=== PATIENT | female | born 1940 | race Caucasian/White ===

== ENCOUNTER → 2022-05-23 13:22 | Outpatient (BNVA) | payer MEDICARE, OTHER, SELFPAY | PROVIDERS: PCP Internal Medicine; Visit Provider Nurse Practitioner Family | DX: R51.9 Headache, unspecified (principal); H93.19 Tinnitus, unspecified ear; R06.83 Snoring; G47.19 Other hypersomnia; F41.9 Anxiety disorder, unspecified | CPT/HCPCS: 99202 ==

== ENCOUNTER → 2022-06-12 13:52 | Outpatient (REF) | payer MEDICARE, OTHER, SELFPAY | LOC: HO.SL 13:52 | PROVIDERS: PCP Internal Medicine; Visit Provider Nurse Practitioner Family | DX: G47.33 Obstructive sleep apnea (adult) (pediatric) (principal); G47.19 Other hypersomnia; R06.83 Snoring; R51.9 Headache, unspecified | CPT/HCPCS: 95806 ==

== ENCOUNTER → 2022-08-03 12:51 | Outpatient (BNVA) | payer MEDICARE, OTHER, SELFPAY | PROVIDERS: PCP Internal Medicine; Visit Provider Nurse Practitioner Family | DX: R51.9 Headache, unspecified (principal); H93.19 Tinnitus, unspecified ear; G47.33 Obstructive sleep apnea (adult) (pediatric) | CPT/HCPCS: 99212 ==

== ENCOUNTER → 2022-09-19 15:54 | Outpatient (BNVA) | payer MEDICARE, OTHER, SELFPAY | PROVIDERS: PCP Internal Medicine; Visit Provider Nurse Practitioner Family | DX: R51.9 Headache, unspecified (principal); G47.33 Obstructive sleep apnea (adult) (pediatric) | CPT/HCPCS: 99212 ==

== ENCOUNTER 2023-01-01 14:39 | Outpatient (AMB) | payer MEDICARE, OTHER, SELFPAY ==
[2023-01-01 14:41] VITALS: BP 132/70; PULSE 76; O2SAT 98; BMI 20.7
--- NOTE | 2023-01-01 14:41 | A.OFFVIS_ITS ---
Intake Vital Signs 01/01/23 14:41 Height 5 ft 5 in Weight 124 lb 4 oz BMI 20.7 BP 132/70 Blood Pressure Location Rt brachial Position Sitting Pulse 76 Pulse Source Pulse Oximeter Pulse Oximetry (%) 98 Oxygen Delivery Method Room Air Intake Visit Reasons: 4m follow up headache - Confirmed Intake Note: Pt presents as a 4 month f/u with her daughter and . Pt states things are not bad since the last visit.Pt states with med changes she's able to sleep through the night with the amitriptyline and the cpap. she wakes up not feeling the dizziness and head pressure she was previously feeling. pt states she notices early afternoon the symptoms creep back up. Some weeks she does well, its not every day occurring. Pts states shes been really using the cpap diligently. She was also experiencing swelling in the legs, pt went to PCP and it turns out it was her b/p medication. Track Inspector Required: No Allergies dexamethasone [From Maxitrol (neomycin sulf)] Allergy (Unknown, Verified 01/01/23 14:50) Unknown neomycin [From Maxitrol (neomycin sulf)] Allergy (Unknown, Verified 01/01/23 14:50) Unknown polymyxin B [From Maxitrol (neomycin sulf)] Allergy (Unknown, Verified 01/01/23 14:50) Unknown meclizine Adverse Reaction (Intermediate, Verified 01/01/23 14:50) Dizziness Medication List - Last Reconciled 01/01/23 by ASHLEY Angel alendronate mg PO QWEEK alprazolam 0.25 mg orally 1 tab 30 minutes prior to MRI, may repeat x's 1; 1 day amitriptyline 10 mg PO BEDTIME biotin 1,000 mcg PO DAILY buspirone mg PO TID levothyroxine mcg PO DAILY losartan 50 mg PO DAILY gkjrqfzh-kdt-fhrm-FA-vit K-lut 8 mg iron-400 mcg-50 mcg (Centrum Silver Women) 1 tab PO DAILY omega 6-rwh-kzx-fish oil 100-160-1,000 mg (Fish Oil) caps PO DAILY riboflavin (vitamin B2) 400 mg PO DAILY 30 days vit C,H-Ae-ruvst-lutein-zeaxan 250-90-40-1 mg (PreserVision AREDS-2) 1 tab PO BID HPI HPI Comments History of Present Illness Details 82-yr-old female presents for f/u visit. Pt is accompanied by her dtr and . Pt was having increased BLE swelling- which resolved upon switching her amlodipine to losartan. Pt had been taking Amitriptyline 20mg qhs- she did not tolerate this well. She since decreased the dose back to 10mg qhs- which she is tolerating well. She feels this is helpful overnight and through the morning. When she has an episode of ear symptoms/headache/meltdown- it is usually in the evening. She is keeping track- she has had 1 episode in Dec and 8 episodes in November. Pt is using her CPAP most nights- rarely misses a night- sleeping well with use and wakes up feeling refreshed. [facility] Medical History Graves disease Osteoporosis Surgical History Hx of cholecystectomy Hx of dilation and curettage Hx of hernia repair Family History Mother Renal failure Agoraphobia Depression Social History (Updated 01/01/23 @ 14:53 by Jennifer Bermeo CMA) Alcohol intake: never Patient Tobacco Use Status: Former Tobacco user Quit Date: 50 years ago Review of Systems Const All systems reviewed & are unremarkable except as noted in HPI and below Physical Exam Vital Signs: Last Vital Signs Pulse 76 01/01/23 14:41 BP 132/70 01/01/23 14:41 Pulse Ox 98 01/01/23 14:41 Oxygen Delivery Method Room Air 01/01/23 14:41 BMI result Body Mass Index 20.7 Const General: cooperative and no acute distress Orientation/consciousness: patient oriented x3 HEENT Head: Yes normocephalic Resp Effort & Inspection: normal respiratory effort and able to speak in complete sentences Neuro General: patient oriented x3, gait normal and CN's II-XI intact bilaterally Cognition (Neuro): normal cognition Motor exam (neuro): 5/5 motor strength present throughout Psych Appearance: grossly normal Mental Status: mental status grossly normal Speech and movement: Normal speech and movement present Affect: normal affect Attitude: cooperative Thought process: Normal thought process present Thought content: Normal thought content present Insight: Good insight present (Psych) Judgement: Good judgement present (Psych) Assessment & Plan Assessment & Plan (1) Migraine without aura: Code(s): G43.009 - Migraine without aura, not intractable, without status migrainosus (2) Moderate obstructive sleep apnea: Comment: [place] [place] AHI 20/hr and O2 allen 82% (SpO2 < 88% for 2.5 min, < 90% 6.9%) Code(s): G47.33 - Obstructive sleep apnea (adult) (pediatric) (3) Tinnitus: Code(s): H93.19 - Tinnitus, unspecified ear Plan For SUJATHA: Continue APAP 5-20 cmH2O nightly > 4 hrs, as pt is having good clinical effect and reduction in residual AHI. Change and clean CPAP supplies routinely. For overall headache management: Continue optimizing good self-care, including but not limited to maintaining a healthy diet,? adequate fluid intake, adequate sleep, and engaging in regular physical activity. Track headaches/head pressure. Use hearing aides.. For acute headache treatment: Continue OTC analgesics- ASA, Tylenol, or Ibuprofen. Trial Ubrogepant (Ubrelvy) 100mg tab, 1/2 - 1 tab (50-100mg) at onset of headache, may repeat in 2 hours. Max of 2 tabs (200mg) per 24 hours. May adjunct with OTC Tylenol 650mg q 4 hours, Ibuprofen 600mg q 6 hours, or Naproxen 440mg q 12 hrs prn. Previous acute migraine medication trials: ASA Acute migraine medication contraindications: Tripatns d/t HTN For headache prevention medication: Continue Riboflavin 400mg qam continue Amitriptyline 10 mg qhs. Previous migraine prevention medication trials: Mag- ineffective. Amitriptyline 20mg qhs- not tolerated. Migraine prevention medication contraindications: None at this time. f/u in 3-4 months or sooner prn Medications: New ubrogepant (Ubrelvy) take at onset of migraine, may repeat in 2hrs (may take w/ Ibuprofen) 50 - 100 mg (0.5 - 1 x 100 mg) PO ONCE PRN 16 tabs 3RF migraine headache 30 days Changed From amitriptyline 20 mg (2 x 10 mg) PO BEDTIME 30 days 60 tabs 3RF To amitriptyline 10 mg PO BEDTIME Coding Level of Care Code Est Pt Level 4 (09846) Diagnoses Migraine without aura G43.009 Moderate obstructive sleep apnea G47.33 Tinnitus H93.19
== END 2023-01-01 15:51 | disposition home or self-care (01) ==
PROVIDERS: Visit Provider Nurse Practitioner Family
DX: G43.009 Migraine without aura, not intractable, without status migrainosus (principal); G47.33 Obstructive sleep apnea (adult) (pediatric); H93.19 Tinnitus, unspecified ear
CPT/HCPCS: 99214

== ENCOUNTER → 2023-01-01 14:39 | Outpatient (BNVA) | payer MEDICARE, OTHER, SELFPAY | PROVIDERS: Visit Provider Nurse Practitioner Family | DX: G43.009 Migraine without aura, not intractable, without status migrainosus (principal); G47.33 Obstructive sleep apnea (adult) (pediatric); H93.19 Tinnitus, unspecified ear; Z99.89 Dependence on other enabling machines and devices | CPT/HCPCS: 99212 ==

== ENCOUNTER 2023-04-22 13:25 | Outpatient (AMB) | payer MEDICARE, OTHER, SELFPAY ==
--- NOTE | 2023-04-22 13:26 | MHC.OFFVIS ---
Intake Vital Signs 04/22/23 13:27 Height 5 ft 5 in Weight 125 lb BMI 20.8 BP 140/78 H Blood Pressure Location Rt brachial Position Sitting Intake Visit Reasons: 4m f/u headache - confirmed Intake Note: Patient presents for 4 month follow up headache. Allergies dexamethasone [From Maxitrol (neomycin sulf)] Allergy (Unknown, Verified 04/22/23 13:29) Unknown neomycin [From Maxitrol (neomycin sulf)] Allergy (Unknown, Verified 04/22/23 13:29) Unknown polymyxin B [From Maxitrol (neomycin sulf)] Allergy (Unknown, Verified 04/22/23 13:29) Unknown meclizine Adverse Reaction (Intermediate, Verified 04/22/23 13:29) Dizziness Medication List - Last Reconciled 04/22/23 by ASHLEY Angel alendronate mg PO QWEEK alprazolam 0.25 mg orally 1 tab 30 minutes prior to MRI, september repeat x's 1; 1 day amitriptyline 10 mg PO BEDTIME amlodipine 5 mg PO DAILY biotin 1,000 mcg PO DAILY buspirone mg PO TID qyoaepy-K2-dzji-copper-jorge l 325 mg-12.5 mcg -2.75 mg (Citracal-D3 Maximum Plus) 2 tabs PO DAILY levothyroxine mcg PO DAILY losartan 50 mg PO DAILY lptofxtr-vph-fbip-FA-vit K-lut 8 mg iron-400 mcg-50 mcg (Centrum Silver Women) 1 tab PO DAILY oh-uvc-IB-V1-vv6-nkq-epa-fish 200 mcg-1,000 unit-25 mg takes 2 gummies a day omega 2-zky-kwq-fish oil 100-160-1,000 mg (Fish Oil) caps PO DAILY riboflavin (vitamin B2) 400 mg PO DAILY 30 days ubrogepant (Ubrelvy) 50 - 100 mg (0.5 - 1 x 100 mg) PO ONCE PRN 30 days vit C,Q-Ay-jwbht-lutein-zeaxan 250-90-40-1 mg (PreserVision AREDS-2) 1 tab PO BID HPI HPI Comments History of Present Illness Details 83-yr-old female presents for f/u visit, accompanied by her dtr. Pt denies any significant interval medical changes. She states that she is having less headache episodes. She now is able to recognize the onset of her episodes, and she is able to walk around or do her jigsaw puzzles or crossword puzzles. She still feels the Amitriptyline 10mg qhs is helpful. She is using her CPAP almost nightly. She feels the machine is helping, but sometimes she does get up to mary the bathroom and just does not put it back on. She does note that she can be easily frustrated- this is typical for her throughout her life. She did try Ubrelvy 50-100mg- x's 3-4 times, but it was ineffective. She is using her PAP device nightly, sometimes gets up to use the BR and does not put back on. Sleeps well with use usually. 30 day APAP compliance report shows: Usage days days (97%) Usage >= 4 hours 22 days (73%) Mode AutoSet Min Pressure 5 cmH2O Max Pressure 20 cmH2O EPR Off Response Standard Pressure - Maximum: 13.2 cmH2O Residual AHI: 1.3/hr PFSH Medical History Osteoporosis Graves disease Surgical History Hx of hernia repair Hx of cholecystectomy Hx of dilation and curettage Family History Mother Renal failure Agoraphobia Depression Social History (Updated 01/01/23 @ 14:53 by Jennifer Bermeo [facility]) Alcohol intake: never Patient Tobacco Use Status: Former Tobacco user Quit Date: 50 years ago Review of Systems Const All systems reviewed & are unremarkable except as noted in HPI and below Physical Exam Vital Signs: Last Vital Signs BP 140/78 H 04/22/23 13:27 BMI result Body Mass Index 20.8 Const General: cooperative and no acute distress Orientation/consciousness: patient oriented x3 HEENT Head: Yes normocephalic Resp Effort & Inspection: normal respiratory effort and able to speak in complete sentences Neuro General: patient oriented x3, gait normal and CN's II-XI intact bilaterally Cognition (Neuro): normal cognition Motor exam (neuro): 5/5 motor strength present throughout Psych Appearance: grossly normal Mental Status: mental status grossly normal Speech and movement: Normal speech and movement present Affect: normal affect Attitude: cooperative Thought process: Normal thought process present Assessment & Plan Assessment & Plan (1) Migraine without aura: Code(s): G43.009 - Migraine without aura, not intractable, without status migrainosus (2) Moderate obstructive sleep apnea: Comment: HST ([facility] [place] May 2022): AHI 20/hr and O2 allen 82% (SpO2 < 88% for 2.5 min, < 90% 6.9%) Code(s): G47.33 - Obstructive sleep apnea (adult) (pediatric) Plan For SUJATHA: Continue APAP 5-20 cmH2O nightly with goal of > 4 hrs, as pt is having good clinical effect and reduction in residual AHI. Change and clean CPAP supplies routinely. ? For overall headache management: Continue optimizing good self-care, including but not limited to maintaining a healthy diet,? adequate fluid intake, adequate sleep, and engaging in regular physical activity. Track headaches/head pressure. Use hearing aides.. ? For acute headache treatment: Continue OTC analgesics- ASA, Tylenol, or Ibuprofen. Continue using distraction strategies- such as doing puzzles etc. Stop Ubrogepant (Ubrelvy) 100mg tab- ineffective. Previous acute migraine medication trials: ASA. Ubrelvy- ineffective. Acute migraine medication contraindications: Tripatns d/t HTN ? For headache prevention medication: Continue Riboflavin 400mg qam Continue Amitriptyline 10 mg qhs. Previous migraine prevention medication trials: Mag- ineffective. Amitriptyline 20mg qhs- not tolerated. Migraine prevention medication contraindications: None at this time. ? f/u in 6 months or sooner prn Coding Level of Care Code Est Pt Level 4 (31403) Diagnoses Migraine without aura G43.009 Moderate obstructive sleep apnea G47.33
[2023-04-22 13:27] VITALS: BP 140/78; BMI 20.8
== END 2023-04-22 14:39 | disposition home or self-care (01) ==
PROVIDERS: PCP Internal Medicine; Visit Provider Nurse Practitioner Family
DX: G43.009 Migraine without aura, not intractable, without status migrainosus (principal); G47.33 Obstructive sleep apnea (adult) (pediatric)
CPT/HCPCS: 99214

== ENCOUNTER → 2023-04-22 13:25 | Outpatient (BNVA) | payer MEDICARE, OTHER, SELFPAY | PROVIDERS: PCP Internal Medicine; Visit Provider Nurse Practitioner Family | DX: G43.009 Migraine without aura, not intractable, without status migrainosus (principal); G47.33 Obstructive sleep apnea (adult) (pediatric); E05.00 Thyrotoxicosis with diffuse goiter without thyrotoxic crisis or storm; M81.0 Age-related osteoporosis without current pathological fracture; Z99.89 Dependence on other enabling machines and devices | CPT/HCPCS: 99212 ==

== ENCOUNTER 2023-10-22 13:31 | Outpatient (AMB) | payer MEDICARE, OTHER, SELFPAY ==
--- NOTE | 2023-10-22 13:55 | A.OFFVIS_ITS ---
Vital Signs 10/22/23 13:56 Height 5 ft 5 in Weight 128 lb BMI 21.3 BP 142/78 H Blood Pressure Location Rt brachial Position Sitting Pulse 88 Pulse Source Pulse Oximeter Pulse Oximetry (%) 97 Oxygen Delivery Method Room Air Intake Visit Reasons: 6 mo f/u - Headaches-CONF Intake Note: Patient presents day for headaches. headaches are much better but not gone completely.but also not as intenese. Allergies dexamethasone [From Maxitrol (neomycin sulf)] Allergy (Unknown, Verified 10/22/23 13:59) Unknown neomycin [From Maxitrol (neomycin sulf)] Allergy (Unknown, Verified 10/22/23 13:59) Unknown polymyxin B [From Maxitrol (neomycin sulf)] Allergy (Unknown, Verified 10/22/23 13:59) Unknown meclizine Adverse Reaction (Intermediate, Verified 10/22/23 13:59) Dizziness Medication List - Last Reconciled 10/22/23 by ASHLEY Angel alendronate mg PO QWEEK alprazolam 0.25 mg orally 1 tab 30 minutes prior to Medical Appt, september repeat x's 1; 7 days amitriptyline 10 mg PO BEDTIME 30 days amlodipine 5 mg PO DAILY biotin 1,000 mcg PO DAILY buspirone mg PO TID qmvwrmi-A0-cpso-copper-jorge l 325 mg-12.5 mcg -2.75 mg (Citracal-D3 Maximum Plus) 2 tabs PO DAILY levothyroxine mcg PO DAILY losartan 50 mg PO DAILY zzvwfstf-jjh-fihn-FA-vit K-lut 8 mg iron-400 mcg-50 mcg (Centrum Silver Women) 1 tab PO DAILY fs-dmr-KX-H5-dv1-edz-epa-fish 200 mcg-1,000 unit-25 mg takes 2 gummies a day omega 9-pdc-lmd-fish oil 100-160-1,000 mg (Fish Oil) caps PO DAILY riboflavin (vitamin B2) 400 mg PO DAILY 90 days ubrogepant (Ubrelvy) 50 - 100 mg (0.5 - 1 x 100 mg) PO ONCE PRN 30 days vit C,F-Ct-alrkm-lutein-zeaxan 250-90-40-1 mg (PreserVision AREDS-2) 1 tab PO BID HPI Comments Details: 83-yr-old female presents for f/u visit. Pt denies any significant interval medical changes. Pt reports she was having a problem with her PAP device- it was not working properly. The machine was checked and repaired by the [employer]. There was evidently a water chamber leak. She was not able to use her CPAP machine for a few nights, and she found that she did not feel as good w/o using her CPAP. Since, receiving new water chamber, she is again able to mary her PAP device. She is feeling her headaches episodes are better, less intense. Not using any acute meds. When it occurs, she is able to rest and take deep breathes- and it eventually subsides. Baseline headache characteristics: usually in the evening, has apisode of melt down w/ head pressure, and building sound/pressure. She is noticing more episodes of mood turning quickly. Her tells her she is bipolar, though he is good at letting these episodes roll off his shoulders. She is on Buspirone as well as the Amitriptyline- she is not sure if these help/effect her mood. Again states has always been prone to this, but maybe it is a bit more. She is trying to self-relax. Compliance Report Usage 09/22/2023 - 10/21/2023 Usage days 25/30 days (83%) Usage days >= 4 hours 23 days (77%) Usage days < 4 hours 2 days (7%) Average usage (days used) 5 hours 18 minutes. AirSense 11 AutoSet Serial number [id number] Mode AutoSet Min Pressure 5 cmH2O Max Pressure 20 cmH2O, w/ Max pressure 10.4 EPR Fulltime EPR level 2 Response Standard Therapy Pressure. Residual AHI: 0.4/hr PFSH Medical History Osteoporosis Graves disease Surgical History Hx of hernia repair Hx of cholecystectomy Hx of dilation and curettage Family History Mother Renal failure Agoraphobia Depression Social History Alcohol intake: never Patient Tobacco Use Status: Former Tobacco user Quit Date: 50 years ago Physical Exam Vital Signs: Last Vital Signs Pulse 88 10/22/23 13:56 BP 142/78 H 10/22/23 13:56 Pulse Ox 97 10/22/23 13:56 Oxygen Delivery Method Room Air 10/22/23 13:56 BMI result Body Mass Index 21.3 Const General: cooperative and no acute distress Orientation/consciousness: patient oriented x3 Resp Effort & Inspection: normal respiratory effort and able to speak in complete sentences Neuro General: patient oriented x3 Cranial nerves: Yes CN's II-XII intact bilaterally Cognition (Neuro): normal cognition Psych Appearance: grossly normal Mental Status: mental status grossly normal Speech and movement: Normal speech and movement present Affect: normal affect Attitude: cooperative Assessment & Plan Assessment & Plan (1) Migraine without aura: Code(s): G43.009 - Migraine without aura, not intractable, without status migrainosus Category: Medical (2) Moderate obstructive sleep apnea: Comment: HST ([facility] – [place] May 2022): AHI 20/hr and O2 allen 82% (SpO2 < 88% for 2.5 min, < 90% 6.9%) Code(s): G47.33 - Obstructive sleep apnea (adult) (pediatric) Category: Medical Plan For SUJATHA: Continue APAP 5-20 cmH2O nightly with goal of > 4 hrs, as pt is having good clinical effect and reduction in residual AHI. Change and clean CPAP supplies routinely. ? For overall headache management: Continue optimizing good self-care, including but not limited to maintaining a healthy diet,? adequate fluid intake, adequate sleep, and engaging in regular physical activity. Track headaches/head pressure. Use hearing aides.. ? For acute headache treatment: Continue OTC analgesics- ASA, Tylenol, or Ibuprofen. Continue using distraction strategies- such as doing puzzles etc. Stop Ubrogepant (Ubrelvy) 100mg tab- ineffective. Previous acute migraine medication trials: ASA. Ubrelvy- ineffective. Acute migraine medication contraindications: Tripatns d/t HTN ? For headache prevention medication: Continue Riboflavin 400mg qam Continue Amitriptyline 10 mg qhs. Previous migraine prevention medication trials: Mag- ineffective. Amitriptyline 20mg qhs- not tolerated. Migraine prevention medication contraindications: None at this time. For mood: Continue Buspar per PCP. Consider psychiatrist consult to confirm dx, consider referral to psychologist. Pt will consider and let me know. ? f/u in 6 months or sooner prn Coding Level of Care Code Est Pt Level 4 (02726) Diagnoses Migraine without aura G43.009 Moderate obstructive sleep apnea G47.33
[2023-10-22 13:56] VITALS: BP 142/78; PULSE 88; O2SAT 97; BMI 21.3
== END 2023-10-22 14:48 | disposition home or self-care (01) ==
PROVIDERS: PCP Internal Medicine; Visit Provider Nurse Practitioner Family
DX: G43.009 Migraine without aura, not intractable, without status migrainosus (principal); G47.33 Obstructive sleep apnea (adult) (pediatric)
CPT/HCPCS: 99214

== ENCOUNTER → 2023-10-22 13:31 | Outpatient (BNVA) | payer MEDICARE, OTHER, SELFPAY | PROVIDERS: PCP Internal Medicine; Visit Provider Nurse Practitioner Family | DX: G43.009 Migraine without aura, not intractable, without status migrainosus (principal); G47.33 Obstructive sleep apnea (adult) (pediatric) | CPT/HCPCS: 99212 ==

== ENCOUNTER 2024-05-11 13:25 | Outpatient (AMB) | payer MEDICARE, OTHER, SELFPAY ==
--- NOTE | 2024-05-11 13:36 | MHC.OFFVIS ---
Vital Signs 05/11/24 13:43 Height 5 ft 5 in Weight 114 lb 8 oz BMI 19.1 BP 130/70 Blood Pressure Location Rt brachial Position Sitting Pulse 80 Pulse Source Pulse Oximeter Pulse Oximetry (%) 98 Oxygen Delivery Method Room Air Intake Visit Reasons: 7 MONTH F/U Intake Note: Patient presents for a 7 mo fu for headaches. Patient has no concerns. Step Finisher Required: No Accompanied by: Daughter Allergies dexamethasone [From Maxitrol (neomycin sulf)] Allergy (Unknown, Verified 05/11/24 13:42) Unknown neomycin [From Maxitrol (neomycin sulf)] Allergy (Unknown, Verified 05/11/24 13:42) Unknown polymyxin B [From Maxitrol (neomycin sulf)] Allergy (Unknown, Verified 05/11/24 13:42) Unknown meclizine Adverse Reaction (Intermediate, Verified 05/11/24 13:42) Dizziness HPI Comments Details: 84-yr-old female presents for f/u visit of migraine and SUJATHA. Pt had an interval fall in Jan 23, 2024- sustained a left hip fx, she underwent left hip ORIF on 01/24/[address] Sun at [facility]. Post-surgery was complicated by difficulty coming out of anesthesia, confusion (thought she was home when she was in the hospital or at the hospital when in rehab etc) and iron deficiency- iron infusion x's 2, f/b oral iron supplement- and just recently advised she can stop iron supplement as her levels have normalized. She did have f/u in-pt rehab, and was d/c'd home in Sep w/ home PT/OT. She is now doing out-pt PT. She continues to walk w/ a cane. Pt reports she was having a problem with her PAP device- it was not working properly. The machine was checked and repaired by the [employer]. There was evidently a water chamber leak. She was not able to use her CPAP machine for a few nights, and she found that she did not feel as good w/o using her CPAP. Since, receiving new water chamber, she is again able to mary her PAP device. When she came home from rehab, she was having increased headache s/s- dtr notes she was not using her CPAP or her hearing aid. Since, she is feeling her headaches episodes continue to be better, less intense. Triggers do include stress, anxiety, and barometric weather changes. Not using any acute meds. She is still trying to relax, become calm by taking deep breathes, which helps. Baseline headache characteristics: usually in the evening, has episode of melt down w/ head pressure, and building sound/pressure. Pt notes that she was not able to use her CPAP during the hospitalization and rehab stay. Once home, it took her some time to reacclimatize to using it regularly. More recently, she is using it more regularly. However, some nights, she finds that some nights the mask and leaks are more bothersome. [facility] Compliance Report Usage 04/11/2024 - 05/10/2024 Usage days 30/30 days (100%) >= 4 hours 15 days (50%) < 4 hours 15 days (50%) Average usage (days used) 3 hours 52 minutes AirSense 11 AutoSet Serial number [id number] Mode AutoSet Min Pressure 5 cmH2O Max Pressure 20 cmH2O EPR Off Response Standard Therapy Pressure - cmH2O Median: 7.4 95th percentile: 10.7 Maximum: 12.2 Leaks - L/min Median: 3.2 95th percentile: 27.2 Maximum: 40.2 Events per hour AI: 0.6 HI: 0.4 AHI: 1.0 PFSH Medical History Osteoporosis Graves disease Surgical History Hx of hernia repair Hx of cholecystectomy Hx of dilation and curettage Family History Mother Renal failure Agoraphobia Depression Social History Alcohol intake: never Patient Tobacco Use Status: Former Tobacco user Physical Exam Vital Signs: Last Vital Signs Pulse 80 05/11/24 13:43 BP 130/70 05/11/24 13:43 Pulse Ox 98 05/11/24 13:43 Oxygen Delivery Method Room Air 05/11/24 13:43 BMI result Body Mass Index 19.1 Const General: cooperative and no acute distress Orientation/consciousness: patient oriented x3 Resp Effort & Inspection: normal respiratory effort and able to speak in complete sentences Neuro General: patient oriented x3 Cranial nerves: Yes CN's II-XII intact bilaterally Cognition (Neuro): normal cognition Psych Appearance: grossly normal Mental Status: mental status grossly normal Speech and movement: Normal speech and movement present Affect: normal affect Attitude: cooperative Assessment & Plan Assessment & Plan (1) Migraine without aura: Code(s): G43.009 - Migraine without aura, not intractable, without status migrainosus Category: Medical (2) Moderate obstructive sleep apnea: Comment: [place] AHI 20/hr and O2 allen 82% (SpO2 < 88% for 2.5 min, < 90% 6.9%) Code(s): G47.33 - Obstructive sleep apnea (adult) (pediatric) Category: Medical Plan For SUJATHA: Adjusted, via [employer] Airview, APAP 5-20 cmH2O w/ EPR off and ramp off to APAP 520 cm H2O w/ EPR 3 and ramp set to 20 minutes- in hopes this improves PAP tolerance. Encourage patient to increase APAP usage to nightly > 4 hrs, as pt is has previously had good clinical effect and continues to have good reduction in residual AHI. Change and clean CPAP supplies routinely. Continue to use distilled water in PAP water resorvoir. ? For overall headache management: Continue optimizing good self-care, including but not limited to maintaining a healthy diet,? adequate fluid intake, adequate sleep, and engaging in regular physical activity. Track headaches/head pressure. Use hearing aides.. ? For acute headache treatment: Continue OTC analgesics- ASA, Tylenol, or Ibuprofen. Continue using distraction strategies- such as doing puzzles etc. Previous acute migraine medication trials: ASA. Ubrelvy- ineffective. Acute migraine medication contraindications: Tripatns d/t HTN ? For headache prevention medication: Continue Riboflavin 400mg qam Continue Amitriptyline 10 mg qhs. Previous migraine prevention medication trials: Mag- ineffective. Amitriptyline 20mg qhs- not tolerated. Migraine prevention medication contraindications: None at this time. For mood: Continue Buspar per PCP. ? Pt to follow-up in 6 months or sooner prn. Coding Level of Care Code Est Pt Level 4 (94938) Diagnoses Migraine without aura G43.009 Moderate obstructive sleep apnea G47.33
[2024-05-11 13:43] VITALS: BP 130/70; PULSE 80; O2SAT 98; BMI 19.1
== END 2024-05-11 14:47 | disposition home or self-care (01) ==
PROVIDERS: PCP Internal Medicine; Visit Provider Nurse Practitioner Family
DX: G43.009 Migraine without aura, not intractable, without status migrainosus (principal); G47.33 Obstructive sleep apnea (adult) (pediatric)
CPT/HCPCS: 99214

== ENCOUNTER → 2024-05-11 13:25 | Outpatient (BNVA) | payer MEDICARE, OTHER, SELFPAY | PROVIDERS: PCP Internal Medicine; Visit Provider Nurse Practitioner Family | DX: G43.009 Migraine without aura, not intractable, without status migrainosus (principal); G47.33 Obstructive sleep apnea (adult) (pediatric); Z99.89 Dependence on other enabling machines and devices | CPT/HCPCS: 99212 ==

== ENCOUNTER 2024-05-15 14:09 | Outpatient (REF) | payer MEDICARE, OTHER, SELFPAY ==
--- NOTE | ~2024-05-15 | CT_ITS ---
EXAMINATION: CT SINUS WITHOUT CONTRAST CLINICAL INFORMATION: Headaches COMPARISON: None available. TECHNIQUE: Multidetector CT scan of the paranasal sinuses are multiplanar reconstructions. This CT examination was performed using dose optimization techniques as appropriate, variously including the following: *Automated exposure control *Adjustment of mA and/or kV according to patient size (this includes techniques or standardized protocols for targeted exams where dose is matched to indication/reason for exam; i.e. extremities or head) *Use of iterative reconstruction technique DLP: 98 mGy-cm FINDINGS: Paranasal sinuses demonstrate symmetrical normal aeration. There is no evidence for any focal lesion. Ostiomeatal pathways are widely patent. Nasal septum mildly deviated to the left. Incidental carla bullosa. No osseous lesion. No soft tissue abnormality. Nasopharynx normal. CT/CT sinus wo IV con IMPRESSION: No active sinus disease. Electronically signed by: aMrtir Rubio MD 05/19/2024 06:52 PM [facility]
== END 2024-05-15 14:10 | disposition home or self-care (01) ==
LOC: HO.CT 14:09
PROVIDERS: PCP Internal Medicine; Visit Provider Otolaryngology
DX: J33.0 Polyp of nasal cavity (principal); G44.219 Episodic tension-type headache, not intractable
CPT/HCPCS: 70486

== ENCOUNTER 2025-02-16 14:52 | Outpatient (AMB) | payer MEDICARE, OTHER, SELFPAY ==
--- NOTE | 2025-02-16 15:00 | MHC.OFFVIS ---
Vital Signs 02/16/25 15:01 Height 5 ft 5 in Weight 110 lb BMI 18.3 BP 130/70 Blood Pressure Location Lt brachial Position Sitting Pulse 87 Pulse Source Pulse Oximeter Pulse Oximetry (%) 97 Oxygen Delivery Method Room Air Intake Visit Reasons: 6 mnts f/u appt Reactor Service Operator Required: No Accompanied by: Self / Same As Patient Allergies dexamethasone (From Maxitrol (neomycin sulf)) Allergy (Unknown, Verified 02/16/25 15:06) Unknown neomycin (From Maxitrol (neomycin sulf)) Allergy (Unknown, Verified 02/16/25 15:06) Unknown polymyxin B (From Maxitrol (neomycin sulf)) Allergy (Unknown, Verified 02/16/25 15:06) Unknown meclizine Adverse Reaction (Intermediate, Verified 02/16/25 15:06) Dizziness Medication List - Last Reconciled 02/16/25 by ASHLEY Angel alendronate mg PO QWEEK alprazolam 0.25 mg orally 1 tab 30 minutes prior to Medical Appt, may repeat x's 1; 7 days amitriptyline 10 mg PO BEDTIME buspirone mg PO TID cjmndft-B1-qiyb-copper-jorge l 325 mg-12.5 mcg -2.75 mg (Citracal-D3 Maximum Plus) 2 tabs PO DAILY levothyroxine 88 mcg PO DAILY metoprolol tartrate 25 mg PO DAILY zwkiatst-cll-jloc-FA-vit K-lut 8 mg iron-400 mcg-50 mcg (Centrum Silver Women) 1 tab PO DAILY riboflavin (vitamin B2) 400 mg PO DAILY 90 days HPI Comments Details: 85-yr-old female presents for f/u visit of migraine and SUJATHA. The patient reports that her daughter did not come today, as she has COVID-19. Patient herself denies any URI or cold-like symptoms. Of note, Eliquis was added to patient's medication list during medication reconciliation, however patient did not recall what this was, and I could see no evidence of patient was taking Eliquis on review of her [facility] portal. She reports her headaches are stable. She says the amitriptyline also helps her sleep. The patient reports that changing the PAP setting from APAP 5-10puG3P with EPR 2 to EPR 3 and increasing the ramp time has been helpful, as the face mask is no longer experiencing bothersome leakage. The patient reports that her CPAP machine is experiencing issues - the machine is leaking from the insertion site. She feels that there is no difference between using her CPAP machine and not using it at all. [facility] Compliance Report Usage 11/18/2024 - 02/15/2025 Overall usage: 90% Usage days > 4 hours: Usage days days (100%) >= 4 hours 15 days (50%) < 4 hours 15 days (50%) Average usage (days used) 3 hours 8 minutes AirSense 11 AutoSet Serial number [id number] Mode AutoSet Min Pressure 5 - 20 cmH2O EPR Off Response Standard Therapy Pressure - cmH2O Median: 7.4 95th percentile: 10.7 Maximum: 12.2 Leaks - L/min Median: 1.3 95th percentile: 16.8 Maximum: 24.2 Residual events per hour: AHI 0.8 per hour 05/11/2024, previous HPI: Pt had an interval fall in Jan 23, 2024- sustained a left hip fx, she underwent left hip ORIF on 01/24/[address] Sun at [facility]. Post-surgery was complicated by difficulty coming out of anesthesia, confusion (thought she was home when she was in the hospital or at the hospital when in rehab etc) and iron deficiency- iron infusion x's 2, f/b oral iron supplement- and just recently advised she can stop iron supplement as her levels have normalized. She did have f/u in-pt rehab, and was d/c'd home in Sep w/ home PT/OT. She is now doing out-pt PT. She continues to walk w/ a cane. Pt reports she was having a problem with her PAP device- it was not working properly. The machine was checked and repaired by the [employer]. There was evidently a water chamber leak. She was not able to use her CPAP machine for a few nights, and she found that she did not feel as good w/o using her CPAP. Since, receiving new water chamber, she is again able to mary her PAP device. When she came home from rehab, she was having increased headache s/s- dtr notes she was not using her CPAP or her hearing aid. Since, she is feeling her headaches episodes continue to be better, less intense. Triggers do include stress, anxiety, and barometric weather changes. Not using any acute meds. She is still trying to relax, become calm by taking deep breathes, which helps. Baseline headache characteristics: usually in the evening, has episode of melt down w/ head pressure, and building sound/pressure. Pt notes that she was not able to use her CPAP during the hospitalization and rehab stay. Once home, it took her some time to reacclimatize to using it regularly. More recently, she is using it more regularly. However, some nights, she finds that some nights the mask and leaks are more bothersome. [facility] Compliance Report Usage 04/11/2024 - 05/10/2024 Usage days 30/30 days (100%) >= 4 hours 15 days (50%) < 4 hours 15 days (50%) Average usage (days used) 3 hours 52 minutes AirSense 11 AutoSet Serial number [id number] Mode AutoSet Min Pressure 5 cmH2O Max Pressure 20 cmH2O EPR Off Response Standard Therapy Pressure - cmH2O Median: 7.4 95th percentile: 10.7 Maximum: 12.2 Leaks - L/min Median: 3.2 95th percentile: 27.2 Maximum: 40.2 Events per hour AI: 0.6 HI: 0.4 AHI: 1.0 PFSH Medical History Osteoporosis Graves disease Surgical History Hx of hernia repair Hx of cholecystectomy Hx of dilation and curettage Family History Mother Renal failure Agoraphobia Depression Social History Alcohol intake: never Patient Tobacco Use Status: Former Tobacco user Physical Exam Vital Signs: Last Vital Signs Pulse 87 02/16/25 15:01 BP 130/70 02/16/25 15:01 Pulse Ox 97 02/16/25 15:01 Oxygen Delivery Method Room Air 02/16/25 15:01 BMI result Body Mass Index 18.3 Const General: cooperative and no acute distress Orientation/consciousness: patient oriented x3 Resp Effort & Inspection: normal respiratory effort and able to speak in complete sentences Neuro General: patient oriented x3 Cranial nerves: Yes CN's II-XII intact bilaterally Cognition (Neuro): normal cognition Psych Appearance: grossly normal Mental Status: mental status grossly normal Speech and movement: Normal speech and movement present Affect: normal affect Attitude: cooperative Assessment & Plan Assessment & Plan (1) Migraine without aura: Code(s): G43.009 - Migraine without aura, not intractable, without status migrainosus Category: Medical Qualifiers: Intractability: not intractable Status migrainosus presence: without status migrainosus Qualified Code(s): G43.009 - Migraine without aura, not intractable, without status migrainosus (2) Moderate obstructive sleep apnea: Comment: HST ([facility] May 2022): AHI 20/hr and O2 allen 82% (SpO2 < 88% for 2.5 min, < 90% 6.9%) Code(s): G47.33 - Obstructive sleep apnea (adult) (pediatric) Category: Medical Plan For SUJATHA: Continue APAP 520 cm H2O w/ EPR 3 and ramp set to 20 minutes. Encouraged patient to increase APAP usage to nightly > 4 hrs, as pt is has previously had good clinical effect and continues to have good reduction in residual AHI. Change and clean CPAP supplies routinely. Continue to use distilled water in PAP water reservoir. Will request CPAP machine service and repair d/t the reported air leakage form the CPAP machine to tubing connection site. ? For overall headache management: Continue optimizing good self-care, including but not limited to maintaining a healthy diet,? adequate fluid intake, adequate sleep, and engaging in regular physical activity. Track headaches/head pressure. Use hearing aides. ? For acute headache treatment: Continue OTC analgesics- ASA, Tylenol, or Ibuprofen. Continue using distraction strategies- such as doing puzzles etc. Previous acute migraine medication trials: ASA. Ubrelvy- ineffective. Acute migraine medication contraindications: Tripatns d/t HTN ? For headache prevention medication: Continue Riboflavin 400mg daily in the morning Continue Amitriptyline 10 mg daily at bedtime. Previous migraine prevention medication trials: Mag- ineffective. Amitriptyline 20mg qhs- not tolerated. Migraine prevention medication contraindications: None at this time. For mood: Continue Buspar per PCP. ? Pt to follow-up in 6 months or sooner prn. Medications: New food supplemt, lactose-reduced (Ensure High Protein oral liquid) ea PO DAILY Coding Level of Care Code Est Pt Level 4 (03909) Diagnoses Migraine without aura and without status migrainosus, not intractable G43.009 Intractability: not intractable Status migrainosus presence: without status migrainosus Moderate obstructive sleep apnea G47.33
[2025-02-16 15:01] VITALS: BP 130/70; PULSE 87; O2SAT 97; BMI 18.3
--- OUTSIDE RECORDS SUMMARY | 2025-02-16 17:57 | XMS_ITS | Clinical Summary ---
Author Organization [address] [facility] Address [address] [place] [address] Phone Care Team Providers Care Manager Biologics Name Role Phone Lin Mchugh MD Primary Care Provider [phone] Allergies Active Allergy Reactions Criticality Noted Date Comments Neomycin 03/26/2018 No reaction documented in transfer records Medications alendronate sodium (FOSAMAX ORAL) Take by mouth. Active ALPRAZolam (XANAX) 0.25 mg tablet Take 1 tablet (0.25 mg total) by mouth 3 (three) times a day if needed. Active amitriptyline (ELAVIL) 10 mg tablet Take 1 tablet (10 mg total) by mouth. Active biotin 1 mg tablet Take by mouth. Active hydrocortisone 2.5 % cream Apply locally twice a day 03/14/2023 Active meclizine (ANTIVERT) 12.5 mg tablet Take 1 tablet (12.5 mg total) by mouth. 10/11/2022 Active calcium carb/D3/magnesi um/zinc (calcium carb-D3-mag rnv83-ecpl) [phone] rk-oemq-yp-mg tablet Take by mouth. Active multivit-min/ir on/FA/vit K/lut (CENTRUM SILVER WOMEN ORAL) Take 1 tablet by mouth 1 (one) time each day. Active OMEGA-3 FATTY ACIDS ORAL Take by mouth 1 (one) time each day. Active riboflavin (VITAMIN B2) 400 mg tablet Take by mouth. Active ubrogepant (UBRELVY) 100 mg tablet Take by mouth. Active levothyroxine (SYNTHROID, LEVOTHROID) 88 mcg tablet Take by mouth 1 (one) time each day before breakfast. Active calcium citrate-vitamin D (CITRACAL+D) 315 mg-5 mcg (200 unit) per tablet Take 1 tablet by mouth 1 (one) time each day. Active lactose-reduced food (ENSURE HIGH PROTEIN ORAL) Take by mouth. Active busPIRone (BUSPAR) 5 mg tablet TAKE 1 TABLET BY MOUTH THREE TIMES A DAY 270 tablet 1 10/26/2024 Active Active Problems Problem Noted Date Diagnosed Date Hearing loss 02/01/2021 Overview (07/31/2023): Getting hearing aids 01/2021 Age-related macular degenera tion, wet, right eye (CMS/HCC V24, CMS/HCC V28) 07/17/2019 Overview (07/31/2023): Seeing Dr. 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 Grider Assessment & Plan (10/12/2024 8:21 PM EDT): Onychomycosis of toenail 03/26/2018 Osteopenia 03/26/2018 Scoliosis 03/26/2018 Overview (07/31/2023): Leg length differential. Right shoe heel lift Eczema 03/26/2018 Seborrhea 03/26/2018 Overview (07/31/2023): Dr Milton Rosalse Immunizations Name Administration Dates Next Due Influenza Quadravalent, 0.5m l (Fluzone High-dose) 65yo and older 02/25/2023,02/22/2022 Influenza trivalent, 0.5mL ( Fluzone High-dose) 65yo and older 02/01/2021,02/10/2020,03/17/2019 Pfizer SARS-CoV-2 COVID-19, mRNA, LNP-S, preservative free 03/07/2022,03/20/2021,07/26/2020,07/02 Pneumococcal conjugate 13 va lent (Prevnar 13, PCV13) 2mo and older 01/28/2020 Pneumococcal conjugate 20 va lent (Prevnar 20, PCV 20) 2mo and older 03/14/2023 Pneumococcal polysaccharide 23 valent (Pneumovax 23) 2yo and older 05/29/2017,02/01/2009 Td Tetanus diptheria (Tdvax) 7yo and older 08/01/2010 Surgical History Surgery Date Site/Laterality Comments CHOLECYSTECTOMY PROCEDURE: HISTORICAL CHOLECYSTECTOMY HERNIA REPAIR PROCEDURE: HISTORICAL HERNIA REPAIR/ING OTHER SURGICAL HISTORY PROCEDURE: MA DILATION & CURETTAGE DX&/THER NONOBSTETRIC Medical History Medical History Date Comments Seborrhea 03/26/2018 DX:Seborrhea; CO MMENT: Dr Milton Rosales Eczema 03/26/2018 DX:Eczema Graves' disease with exophthalmos 03/26/2018 DX:Graves' disease with exophthalmos; COMMENT: Radioactive iodine treatment H/O vertigo 03/26/2018 DX:H/O vertigo History of myxedema 03/26/2018 DX:History o f myxedema History of wrist fracture 03/26/2018 DX:His tory of wrist fracture; COMMENT: 08/02/17. [facility] Hyperlipidemia 03/26/2018 DX:Hyperlipidemi a Hypothyroidism 03/26/2018 DX:Hypothyroidis m; COMMENT: Dr. Barbara Cantu Labile hypertension 03/26/2018 DX:Labile hy pertension; COMMENT: White coat hypertension Onychomycosis of toenail 03/26/2018 DX:Onyc homycosis of toenail Osteopenia 03/26/2018 DX:Osteopenia; C OMMENT: follwed by Dr. Cardenas Scoliosis 03/26/2018 DX:Scoliosis; CO MMENT: Leg length differential. Right shoe heel lift Tinnitus DX:Tinnitus Family History Medical History Relation Name Comments Kidney failure Mother Agoraphobia, Depression Other: agoraphobia Mother Heart failure Mother's side Relation Name Status Comments Mother Mother's side Social History Tobacco Use Types Packs/Day Years Used Date Smoking Tobacco: Former Cigarettes Q uit: 03/27/1967 Smokeless Tobacco: Never Tobacco Cessation:Counseling Given: Not Answered Alcohol Use Standard Drinks/Week Comments No 0 (1 standard drink = 0.6 oz pur e alcohol) Comments Unknown Sex and Gender Information Value Date Recorded Sex Assigned at Not on file Legal Sex Female 11:45 AM EST Gender Identity Not on file Sexual Orientation Not on file Obstetrics History Last Filed Vital Signs Vital Sign Reading Time Taken Comments Blood Pressure 142/76 10/12/2024 1:21 PM EDT Pulse 53 10/12/2024 1:21 PM EDT Temperature 36.6 C (97.8 F) 10/12/2024 1:21 PM EDT Respiratory Rate - - Oxygen Saturation 99% 10/12/2024 1:21 PM EDT Inhaled Oxygen Concentration - - Weight 49.4 kg (109 lb) 10/12/2024 1:21 PM EDT Height 162.6 cm (5' 4 ) 05/04/2024 1:02 PM EST Body Mass Index 18.71 05/04/2024 1:02 PM EST Plan of Treatment Upcoming Encounters Date Type Department Care Team (Late st Contact Info) Description 03/22/2025 1:00 PM EDT Office Visit Internal Medicine - [place] [address] [facility] [address] [place] [address] Lin Mchugh MD [address] [facility] [address] [place] [address] Health Maintenance Due Date Last Done Comments Zoster Vaccines (1 of 2) 01/09/1988 DTaP,Tdap,and Td Vaccines (2 - Td or Tdap) 08/01/2020 08/01/2010 Osteoporosis Screening (Bone Density Screening) 04/24/2022 Social Influencers of Health Screening 04/24/2022 Influenza Vaccine (#1) 2025 , 02/25/2023, 02/22/2022, Additional history exists Hypertension/CHF/CAD Annual BMP Blood Test 05/04/2025 05/04/2024, 02/18/2024 Falls Risk Assessment 10/12/2025 10/12/2024 , 10/12/2024, 10/11/2022 Medicare Annual Wellness Visit 10/12/2025 10/12/2024 Cholesterol Screening (Lipid Panel) 12/28/2027 12/27/2022 RSV Immunization Adult Patients Completed 03/11/2023 Pneumococcal Vaccine: 50+ Years Completed 03/14/2023, 01/28/2020, 05/29/2017, Additional history exists COVID-19 Vaccine Completed 10/05/2024, , 08/29/2023, Additional history exists Depression Screening Completed 10/12/2024 HIB Vaccines Aged Out No longer eligi ble based on patient's age to complete this topic HPV Vaccines Aged Out No longer eligi ble based on patient's age to complete this topic Hepatitis A Vaccines Aged Out No long er eligible based on patient's age to complete this topic Hepatitis B Vaccines Aged Out No long er eligible based on patient's age to complete this topic IPV Vaccines Aged Out No longer eligi ble based on patient's age to complete this topic MMR Vaccines Aged Out No longer eligi ble based on patient's age to complete this topic Meningococcal ACWY Vaccine Aged Out N o longer eligible based on patient's age to complete this topic Meningococcal B Vaccine Aged Out No l onger eligible based on patient's age to complete this topic RSV Immunization Patients Under 20 months Aged Out No longer eligible based on patient's age to complete this topic Varicella Vaccines Aged Out No longer eligible based on patient's age to complete this topic Procedures Procedure Name Priority Date/Time Associated Diagnosis Comments COMPREHENSIVE METABOLIC PANEL Routine 05/04/2024 2:42 PM EST Mixed hyperlipidemia Hypothyroidism due to acquired atrophy of thyroid Iron deficiency anemia, unspecified iron deficiency anemia type LIPID PANEL Routine 12/27/2022 from Last 3 Months or Most Recently Relevant to Health Maintenance Results * Comprehensive metabolic panel (05/04/2024 2:42 PM EST) Sodium 141 133 - 145 mmol/L LAB CHEMISTRY METHOD 05/04/2024 7:14 PM [facility] Potassium 4.2 3.5 - 5.5 mmol/L LAB CHEMISTRY METHOD 05/04/2024 7:14 PM [facility] Chloride 105 96 - 110 mmol/L LAB CHEMISTRY METHOD 05/04/2024 7:14 PM [facility] CO2 30 21 - 32 mmol/L LAB CHEMISTRY METHOD 05/04/2024 7:14 PM [facility] Anion Gap 6 3 - 11 LAB CHEMISTRY METHOD 05/04/2024 7:14 PM [facility] Glucose 87 70 - 100 mg/dL LAB CHEMISTRY METHOD 05/04/2024 7:14 PM [facility] BUN 16 5 - 25 mg/dL LAB CHEMISTRY METHOD 05/04/2024 7:14 PM [facility] Creatinine 0.68 0.50 - 1.10 mg/dL LAB CHEMISTRY METHOD 05/04/2024 7:14 PM [facility] eGFR 85 >=60 mL/min/1. 73m2 LAB CHEMISTRY METHOD 05/04/2024 7:14 PM [facility] Comment:Calculation based on the Chronic Kidney Disease Epidemiology Collaboration (CKD-EPI) equation refit without adjustment for race. BUN/Creatinine Ratio 23.5 LAB CHEMISTRY METHOD 05/04/2024 7:14 PM [facility] Calcium 9.7 8.5 - 10.5 mg/dL LAB CHEMISTRY METHOD 05/04/2024 7:14 PM [facility] AST (SGOT) 18 10 - 42 unit/L LAB CHEMISTRY METHOD 05/04/2024 7:14 PM [facility] ALT (SGPT) 41 10 - 60 unit/L LAB CHEMISTRY METHOD 05/04/2024 7:14 PM [facility] Alkaline Phosphatase 65 42 - 121 unit/L LAB CHEMISTRY METHOD 05/04/2024 7:14 PM [facility] Total Protein 6.0 6.0 - 8.0 g/dL LAB CHEMISTRY METHOD 05/04/2024 7:14 PM [facility] Albumin 4.0 3.2 - 5.0 g/dL LAB CHEMISTRY METHOD 05/04/2024 7:14 PM [facility] Total Bilirubin 1.0 0.0 - 1.4 mg/dL LAB CHEMISTRY METHOD 05/04/2024 7:14 PM [facility] Blood Venous blood specimen / Unknown Venipuncture / Unknown 05/04/2024 2:42 PM EST 05/04/2024 2:42 PM EST Lin Mchugh MD LAB BLOOD ORDERABLES Final Res ult [facility] [address] [place] [address], * Lipid panel (12/27/2022) LDL/HDL Ratio 2 Triglycerides 170 mg/dL Cholesterol 216 mg/dL HDL 97 mg/dL LDL Cholesterol 85 mg/dL Blood Venous blood specimen / Unknown Historical Provider LAB BLOOD ORDERABLES Anh l Result from Last 3 Months or Most Recently Relevant to Health Maintenance Insurance MEDICARE Care Teams Manager Biologics Relationship Specialty Start Date End Date Lin Mchugh MD [address] [place] [phone] PCP - General Internal Medicine 03/27/21
--- OUTSIDE RECORDS SUMMARY | 2025-02-16 17:57 | XMS_ITS | Continuity of Care Document ---
Author Organization [facility] [address] [place] [address] Phone [phone] Care Team Providers Care Field Ring Assembler Name Role Phone Lin Mchugh M.D. Care Team Information Receive r [phone] Problems Active Problems Provider Date Hearing loss Barbara Grider M.D. Ons et: 05/30/2022 Tinnitus Barbara Grider M.D. Ons et: 05/30/2022 Age related macular degeneration Barbara Villeda M.D. Onset: 05/30/2022 Osteoporosis Barbara Grider M.D. Ons et: 05/30/2022 Graves' disease Barbara Grider M.D. Ons et: 05/30/2022 Postablative hypothyroidism Barbara tijerina M.D. Onset: 05/30/2022 Closed fracture of right wrist Barbara arriaga M.D. Onset: 05/30/2022 Closed fracture of left wrist Barbara garcia M.D. Onset: 05/30/2022 Closed fracture of left fibula Barbara arriaga M.D. Onset: 05/30/2022 Anxiety Barbara Grider M.D. Ons et: 05/30/2022 Migraine Barbara Grider M.D. Ons et: 05/30/2022 Social History Type Date Description Comments Sex Female Sex Unknown Lives With Spouse Work Status Retired ETOH Use Denies alcohol use Tobacco Use Start: Unknown End: Unknown Patient is a former smoker Quit 1950 Allergies and adverse reactions Description No Known Drug Allergies Medications Active Medications SIG Qnty Indications Ordering Provider Date Alendronate Ukbzzv43gd Tablets Take 1 Tablet By Mouth Weekly 12tabs Barbara Grider M.D. 03/23/2022 Buspirone HCL5mg Tablets Take 1 three times daily Lin Mchugh M.D. [id number] Tablets Take 1 daily Edith Decker NP Multivitamin Adults 50+Adlt 50+ Tablets 1 by mouth every day Barbara Grider M.D. Citracal Calcium+D Slow [id number] -Unit Tablets ER 24HR 1 by mouth bid Barbara Grider M.D. Amitriptyline VVK25wb Tablets take 1 tablet at bedtime Unknown Levothyroxine Ycsxnu49ljh Tablets take 1 tablet by mouth every day 90tabs Barbara Grider M.D. Vital Signs Date Vital Result Comment 09/09/2024 2:12pm BP Systolic 122 mmHg BP Diastolic 60 mmHg Heart Rate 78 /min Height 64 inches 5'4 Weight 108.38 lb BMI (Body Mass Index) 18.6 kg/m2 Results Test Acquired Date Facility Test Result H/L Range Note CBC With Differential/Plat elet 09/09/2024 [facility] WBC 6.3 x10E3/uL 3.4-10.8 RBC 4.07 x10E6/uL 3.77-5.2 8 Hemoglobin 12.9 g/dL 11.1-15. 9 Hematocrit 38.6 % 34.0-46. 6 MCV 95 fL 79-97 MCH 31.7 pg 26.6-33. 0 MCHC 33.4 g/dL 31.5-35. 7 RDW 12.8 % 11.7-15. 4 Platelets 259 x10E3/uL 150-450 Neutrophils 58 % Not Estab. Lymphs 27 % Not Estab. Monocytes 9 % Not Estab. Eos 5 % Not Estab. Basos 1 % Not Estab. Immature Cells TNP Neutrophils (Absolute) 3.6 x10E3/uL 1.4-7.0 Lymphs (Absolute) 1.7 x10E3/uL 0.7-3.1 Monocytes(Absol u te) 0.6 x10E3/uL 0.1-0.9 Eos (Absolute) 0.3 x10E3/uL 0.0-0.4 Baso (Absolute) 0.1 x10E3/uL 0.0-0.2 Immature Granulocytes 0 % Not Estab. Immature Grans (Abs) 0.0 x10E3/uL 0.0-0.1 NRBC TNP Hematology Comments: TNP TSH Rfx on Abnormal to Free T4 09/09/2024 [facility] TSH Rfx on Abnormal to Free T4 2.880 uIU/mL 0.450-4. 500 Comp. Metabolic Panel (14) 09/09/2024 [facility] Glucose 85 mg/dL 70-99 BUN 13 mg/dL 8-27 Creatinine 0.68 mg/dL 0.57-1.0 0 eGFR 85 mL/min/1. 73 >59 BUN/Creatinine Ratio 19 12-28 Sodium 142 mmol/L 134-144 Potassium 4.6 mmol/L 3.5-5.2 Chloride 103 mmol/L 96-106 Carbon Dioxide, Total 24 mmol/L 20-29 Calcium 9.7 mg/dL 8.7-10.3 Protein, Total 6.1 g/dL 6.0-8.5 Albumin 4.5 g/dL 3.7-4.7 Globulin, Total 1.6 g/dL 1.5-4.5 Bilirubin, Total 0.9 mg/dL 0.0-1 .2 Alkaline Phosphatase 56 IU/L 44-121 Ast (Sgot) 17 IU/L 0-40 Alt (SGPT) 12 IU/L 0-32 TSH Rfx on Abnormal to Free T4 06/17/2024 [facility] TSH Rfx on Abnormal to Free T4 2.110 uIU/mL 0.450-4. 500 TSH RFX On Abnormal To Free T4 05/10/2024 [facility] TSH RFX On Abnormal To Free T4 <pending> TSH 05/08/2024 [facility] TSH 6.270 uIU/mL High 0.450-4. 500 Thyroxine (T4) Free, Direct 05/08/2024 [facility] Thyroxine (T4) Free, Direct 1.44 ng/dL 0.82-1.7 7 Vitamin D, 25-Hydroxy 05/08/2024 [facility] Vitamin D, 25-Hydroxy 43.2 ng/mL 30.0-100 .0 1 Comprehensive Metabolic Panl 07/01/2023 [facility] Glucose 79 mg/dL (70-99) BUN 15 mg/dL (8-23) Creatinine 0.7 mg/dL (0.5-1.0 ) Sodium 141 mmol/L (133-145 ) Potassium 4.5 mmol/L (3.6-5.2 ) Chloride 104 mmol/L (98-107) Bicarbonate 24 mmol/L (22-29) Anion Gap 13 (4-17) Albumin 4.5 GM/DL (3.4-4.8 ) Calcium 9.5 mg/dL (8.6-10. 5) Bilirubin,Total 0.9 mg/dL (0-1.2 ) Total Protein 6.6 GM/DL (6.2-8.2 ) Ag Ratio 2.1 Ast 23 U/L (0-32) Alk Phos 48 U/L (35-104) Alt 16 U/L (0-33) Estimated GFR Creatinine 86 ML/MIN/1. 73M2 2 Free T4 07/01/2023 [facility] Free T4 1.31 ng/dL (0.70-1. 80) 25Oh Vitamin D 07/01/2023 [facility] 25Oh Vitamin D 51.0 NG/ML High (20-50) TSH With Reflex To FT4 07/01/2023 [facility] TSH With Reflex To FT4 4.43 uIU/mL High (0.4-4.2 ) Complete Abc With Diff 07/01/2023 [facility] WBC 5.4 K/MM3 (4.0-11. 0) RBC 4.10 M/MM3 Low (4.20-5. 40) HGB 12.7 GM/DL (11.7-15 .5) HCT 38.8 % (35.7-45 .8) MCV 94.6 FL (80.0-10 0.0) MCH 31.0 pg (27.0-34 .0) MCHC 32.7 g/dL Low (33.0-37 .0) PLT 242 K/MM3 (150-460 ) RDW-SD 47.3 FL High (<47.0) MPV 11.1 FL (9.4-12. 4) Automated NRBC 0.0 #/100WBC' S Abs. NRBC 0.0 K/MM3 Neut # 2.8 K/MM3 (1.3-7.0 ) Lymph # 1.8 K/MM3 (0.8-3.1 ) [place]# 0.5 K/MM3 (0.4-0.9 ) Eo # 0.2 K/MM3 (0.0-0.4 ) Baso # 0.1 K/MM3 (0.0-0.1 ) Abs. Imm Gran 0.0 K/MM3 Neut 52.8 % (44-76) Lymph 33.1 % (15-43) Monocyte 9.3 % (4.5-10. 5) Eo 3.5 % (0-6) Baso 1.1 % (0-2) Imm Gran 0.2 % Comprehensive Metabolic Panl 05/30/2022 [facility] Glucose 96 mg/dL (70-99) BUN 18 mg/dL (8-23) Creatinine 0.7 mg/dL (0.5-1.0 ) Sodium 140 mmol/L (133-145 ) Potassium 4.5 mmol/L (3.6-5.2 ) Chloride 103 mmol/L (98-107) Bicarbonate 26 mmol/L (22-29) Anion Gap 11 (4-17) Albumin 4.8 GM/DL (3.4-4.8 ) Calcium 9.7 mg/dL (8.6-10. 5) Bilirubin,Total 1.0 mg/dL (0-1.2 ) Total Protein 6.7 GM/DL (6.2-8.2 ) Ag Ratio 2.5 Ast 25 U/L (0-32) Alk Phos 46 U/L (35-104) Alt 18 U/L (0-33) Estimated GFR Creatinine 86 ML/MIN/1. 73M2 3 Complete Abc With Diff 05/30/2022 [facility] WBC 6.1 K/MM3 (4.0-11. 0) RBC 4.26 M/MM3 (4.20-5. 40) HGB 13.5 GM/DL (11.7-15 .5) HCT 42.2 % (35.7-45 .8) MCV 99.1 FL (80.0-10 0.0) MCH 31.7 pg (27.0-34 .0) MCHC 32.0 g/dL Low (33.0-37 .0) PLT 244 K/MM3 (150-460 ) RDW-SD 51.3 FL High (<47.0) MPV 10.9 FL (9.4-12. 4) Automated NRBC 0.0 #/100WBC' S Abs. NRBC 0.0 K/MM3 Neut # 3.5 K/MM3 (1.3-7.0 ) Lymph # 1.9 K/MM3 (0.8-3.1 ) [place]# 0.5 K/MM3 (0.4-0.9 ) Eo # 0.1 K/MM3 (0.0-0.4 ) Baso # 0.1 K/MM3 (0.0-0.1 ) Abs. Imm Gran 0.0 K/MM3 Neut 57.3 % (44-76) Lymph 30.7 % (15-43) Monocyte 8.5 % (4.5-10. 5) Eo 2.3 % (0-6) Baso 1.0 % (0-2) Imm Gran 0.2 % 25Oh Vitamin D 05/30/2022 [facility] 25Oh Vitamin D 52.8 NG/ML High (20-50) TSH With Reflex To FT4 05/30/2022 [facility] TSH With Reflex To FT4 2.87 uIU/mL (0.4-4.2 ) 1 Vitamin D deficiency has been defined by the [place] [employer] and an Endocrine Society practice guideline as a level of serum 25-OH vitamin D less than 20 ng/mL (1,2). The Endocrine Society went on to further define vitamin D insufficiency as a level between 21 and 29 ng/mL (2). 1. IOM ([place] [employer]). 2010. Dietary reference intakes for calcium and D. [place]: The National Academies Press. 2. Sarahi MF, Vibha DICKSON, Corine GRUBER, et al. Evaluation, treatment, and prevention of vitamin D deficiency: an Endocrine Society clinical practice guideline. JCEM. 2010; 96(7):1911-30. 2 Creatinine based est imated glomerular filtration (eGFR) in adults is calculated using the National Kidney Foundation recommended 2020 CKD-EPI equation. Estimates GFR from serum creatinine, age and sex. 3 Creatinine based est imated glomerular filtration (eGFR) in adults is calculated using the National Kidney Foundation recommended 2020 CKD-EPI equation. Estimates GFR from serum creatinine, age and sex. Procedures Date Code Description Status 09/09/2024 88669 Collection Of Venous Blood B y Venipuncture Completed 05/08/2024 50999 Collection Of Venous Blood B y Venipuncture Completed 12/30/2023 NSHOWOFF No Show Office Visit Complet ed 07/01/2023 06942 Collection Of Venous Blood B y Venipuncture Completed 05/30/2022 92206 Collection Of Venous Blood B y Venipuncture Completed Medical Devices Description No Information Available Encounters Type Date Location Provider Dx Diagnosis Office Visit 09/09/2024 2:15p Main Office Barbara Grider M.D. 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 09/09/2024 E05.00 Graves' disease Barbara Pacheco M.D. 09/09/2024 M81.0 Age-related oste oporosis without current pathological fracture Barbara Grider M.D. Plan of Treatment Future Appointment(s):* 03/15/2025 1:15 pm - Barbara Grider M.D. at Main Office 05/30/2022 - Barbara Grider M.D.* E03.9 Hypothyroidism, unspecified * M81.0 Age-related osteoporosis without current pathological fracture * E05.00 Graves' disease Functional Status Description No Information Available Mental Status Description No Information Available Referrals Description No Information Available
--- OUTSIDE RECORDS SUMMARY | 2025-02-16 17:57 | XMS_ITS | Patient Health Record ---
Author Organization [facility] Address [address] [address] Care Team Providers Care Leather Sprayer Name Role Phone SHELLY SMALLWOOD Primary Care Provider Nevaeh Pollard Unavailable [phone] Allergies Allergen (clinical drug ingredient) Drug/Non Drug Allergy documented on EMR Reaction Allergy Type Onset Date Status neomycin NEOMYCIN SULFATE Unknown Drug Allergy Active Reason For Referral No Information Medications Medication SIG (Take, Route, Frequency, Duration) Notes Start Date End Date Status Cod Liver Oil 1 ORAL daily; Durati on: -3 [facility] 02/10/2013 Active Levothyroxine Sodium 75MCG 1 ORAL daily; Duration: -3 [facility] 02/10/2013 Active Citracal Calcium+D ORAL; Duration: -3 [facility] 02/04/2012 Active Amitriptyline HCl 10 MG 1 tablet Oral On ce a day; Duration: 30 days Active Alendronate Sodium 70 MG TAKE 1 TABLET B Y MOUTH WEEKLY Oral; Duration: 84 Days Active Losartan Potassium 50 MG Oral; Duration: 90 Days Active busPIRone HCl 5 MG 1 tablet Orally Thre e x a day Active amLODIPine Besylate 5 MG 1 tablet Orally Once a day Active Meclizine HCl 12.5 MG 1 tablet as needed Orally every 12 hrs Active Riboflavin 400 MG 1 capsule Orally Onc e a day Active Social History Alcohol Screen (Audit-C) Question Answer Notes Did you have a drink containing alcohol in the p ast year? No Points 0 Interpretation Negative Problems Problem Type SNOMED Code ICD Code Onset Dates Problem Status W/U Status Risk Notes Problem Postmenopausal atrophic vaginitis (37437809) Postmenopausal atrophic vaginitis (N95.2) Active confirmed Problem Incomplete uterovaginal prolapse (526865388) Incomplete uterovaginal prolapse (N81.2) Active confirmed Problem Age-related osteoporosis (603347677) Age-related osteoporosis without current pathological fracture (M81.0) Active confirmed Problem Hypervitaminosis D (66123519) Hypervitaminosis D (E67.3) Active confirmed Problem Hypothyroidism (98851461) Unspecified hypothyroidism (244.9) Active confirmed Major Problem Menopausal symptom (31726930) Symptomatic menopausal or female climacteric states (627.2) Active confirmed Major Problem Osteoporosis (90090434) Unspecified osteoporosis (733.00) Active confirmed Diag Problem Disorder of bone and articular cartilage (disorder) (449923413) Disorder of bone and cartilage, unspecified (733.90) Active confirmed Diag Problem Gynecological examination normal (825012337981581) Routine gynecological examination (V72.31) Active confirmed Major Problem Screening for malignant neoplasm of colon (850412015) Special screening for malignant neoplasms, colon (V76.51) Active confirmed Major Plan Of Treatment Pending Test Test Name Order Date MAMMOGRAM, SCREENING 04/07/2021 MAMMOGRAM, SCREENING 08/09/2023 Urinalysis 04/04/2020 25OH VITAMIN D 01/01/2018 25OH VITAMIN D 11/28/2017 COMPREHENSIVE METABOLIC PANEL 11/28/2017 N-TELOPEPTIDE CROSS 11/28/2017 PTH, INTACT 11/28/2017 THIN PREP,HPV (>29YR) (DIAG) 03/26/2019 TSH 11/28/2017 BONE DENSITY 08/09/2023 MM Digital Mammo Screening 08/09/2023 MM Digital Mammo Screening 04/04/2020 MM Digital Mammo Screening 04/07/2021 Insurance Providers Payer Name Payer Address Payer Phone Subscriber Number Group Number Insured Name Patient Relationship to Insured Coverage Start Date Coverage End Date MEDICARE [address] [place] [id number] JULIANN OLIVAREZ Self - patient is the insured [facility] [address] [place] [phone] [id number] JULIANN OLIVAREZ Self - patient is the insured Medical (General) History Medical History History ICD Code Disorder of bone density and structure, unspecified M85.9 Age-related osteoporosis without current pathological fracture M81.0 Hypothyroidism, unspecified E03.9 Menopausal and female climacteric states N95.1 Hypervitaminosis D E67.3 Postmenopausal atrophic vaginitis N95.2 Surgical History Surgery Date(Month/Year) Cholecystectomy Colonoscopy Right Inguinal Hernia Tonsillectomy Hospitalization History Reason Date(Month/Year) See Surgical Hx 2 Vaginal Deliveries
--- OUTSIDE RECORDS SUMMARY | 2025-02-16 17:57 | XMS_ITS ---
Author Name [facility] Organization Unknown Care Team Organization Name Specialty Phone Email Start Date End Da te [facility] ACO 01/13/2025 [facility] Lin Mchugh Primary Care 08/01/2022 01/13/20 [facility] Termed, PROVIDER Primary Care 04/03/202212/25
--- OUTSIDE RECORDS SUMMARY | 2025-02-16 17:57 | XMS_ITS | Clinical Summary ---
Author Organization [facility] Address [address] [address] Phone Care Team Providers Care Tape Weaver Name Role Phone Kell Wheeler MD Primary Care Pro vider Allergies Active Allergy Reactions Criticality Noted Date Comments Neomycin 11/24/2018 Medications montelukast (SINGULAIR) 10 mg tablet Take 10 mg by mouth. 09/19/2018 Active vit A and D3 in cod liver oil (COD LIVER OIL) 4,000 unit-400 unit/5 mL Liqd Take by mouth. Active LORazepam (ATIVAN) 0.5 MG tablet Take 0.5 mg by mouth. 08/19/2018 Active multivitamin (MULTIPLE VITAMINS ORAL) Take 1 tablet by mouth. Active levothyroxine (SYNTHROID, LEVOTHROID) 75 MCG tablet Take 75 mcg by mouth. Active nystatin-triamc inolone ointment Apply to external ear two times a day as needed for itching and dryness 30 g 2 11/16/2020 Active alendronate (FOSAMAX) 70 MG tablet 08/27/2021 Active Active Problems No known active problems Social History Tobacco Use Types Packs/Day Years Used Date Smoking Tobacco: Never Smokeless Tobacco: Never Education Answer Date Recorded Are you interested in more education? Not on arnoldo e 09/21/2022 Are you concerned about learning? Not on file 09/21/2022 No 09/21/2022 No 09/21/2022 Digital Access Answer Date Recorded No 10/20/2022 No 10/20/2022 No 10/20/2022 Reliable internet access at home? Not on file 10/20/2022 Device with a working camera? Not on file Comments Unknown Sex and Gender Information Value Date Recorded Sex Assigned at Not on file Legal Sex Female 10:27 AM EDT Gender Identity Not on file Sexual Orientation Not on file Last Filed Vital Signs Vital Sign Reading Time Taken Comments Blood Pressure - - Pulse - - Temperature - - Respiratory Rate - - Oxygen Saturation - - Inhaled Oxygen Concentration - - Weight 60.3 kg (133 lb) 11/24/2018 1:09 PM EDT Height 160 cm (5' 3 ) 11/24/2018 1:09 PM EDT Body Mass Index 23.56 11/24/2018 1:09 PM EDT Plan of Treatment Health Maintenance Due Date Last Done Comments TSH LEVEL 1938 DEPRESSION SCREENING 1950 ZOSTER VACCINES (1 of 2) 01/09/1988 OSTEOPOROSIS SCREENING INITIAL (ONE-TIME) 2003 RSV VACCINE (1 - 1-dose 75+ series) 2013 Adult Td,Tdap Booster 08/01/2020 08/01/2010 INFLUENZA VACCINE (#1) 2024 , 02/01/2021, 02/10/2020, Additional history exists COVID-19 VACCINE ( season) 2025 03/20/2021, 07/26/2020, 07/06/2020 PNEUMOCOCCAL VACCINES (50+ years) Completed 01/28/2020, 05/29/2017, 02/01/2009 HEPATITIS A VACCINES Aged Out No long er eligible based on patient's age to complete this topic HIB VACCINES Aged Out No longer eligi ble based on patient's age to complete this topic MENINGOCOCCAL VACCINES (ACWY) Aged Out No longer eligible based on patient's age to complete this topic MENINGOCOCCAL VACCINES (B) Aged Out N o longer eligible based on patient's age to complete this topic Medical Devices Not on file Insurance MEDICARE PART A & B HMO MEDICARE PART A & B HMO MEDICARE PART A & B [facility] Address: [place] [address] MEDICARE PART A & B [facility] PART A & B O MEDICARE PART A & B O MEDICARE PART A & B HMO MEDICARE PART A & B [employer] HMO MEDICARE PART A & B Member Subscriber Plan / Payer (Ef fective 2003-Present) Name:Janette Mojica Member ID:[id number] Relation to Subscriber:Self Name:Janette Mojica Subscriber ID:[id number] Payer ID:[id number] Group ID:Not on file Type:Medicare Address: [facility] [employer] [facility] [address] [place] [phone] [facility] HMO Care Teams Tape Weaver Relationship Specialty Start Date End Date Kell Wheeler MD [address] [place] [address] PCP - General Internal Medicine 08/27/18 Additional Source Comments The information contained in this document represents components of the legal health record. It is not the complete legal health record.[facility]
== END 2025-02-16 16:19 | disposition home or self-care (01) ==
LOC: HO.HSMS 14:53
PROVIDERS: PCP Internal Medicine; Visit Provider Nurse Practitioner Family
DX: G43.009 Migraine without aura, not intractable, without status migrainosus (principal); G47.33 Obstructive sleep apnea (adult) (pediatric)
CPT/HCPCS: 99214

== ENCOUNTER → 2025-02-16 14:52 | Outpatient (BNVA) | payer MEDICARE, OTHER, SELFPAY | PROVIDERS: PCP Internal Medicine; Visit Provider Nurse Practitioner Family | DX: G43.009 Migraine without aura, not intractable, without status migrainosus (principal); G47.33 Obstructive sleep apnea (adult) (pediatric) | CPT/HCPCS: 99212 ==